=== PATIENT | male | born 1960 | race Caucasian/White ===

== ENCOUNTER 2024-07-02 21:28 | Emergency (ER) | payer MEDICARE ==
[~2024-07-02] VITALS: Ht 165.1 cm; Wt 63.5 kg
[2024-07-02 21:38] VITALS: TEMP 98.5
[2024-07-02] MEDS: BENZONATATE 100 MG CAP PO ONE (22:03)
[2024-07-02] MEDS: SODIUM CHLORIDE 0.9% 1000ML 1,000 ML IV ONE (22:16)
[2024-07-02 22:20] VITALS: PULSE 106; RESP 25
[2024-07-02 22:20] LABS: CORONAVIRUS COVID-19 AG NEGATIVE (NEGATIVE); INFLUENZA A AG NEGATIVE (NEGATIVE); INFLUENZA B AG NEGATIVE (NEGATIVE)
[2024-07-02] MEDS: ALBUTEROL/IPRATROPIUM 3 ML NEB NEB ONE (22:20)
[2024-07-03] MEDS ORDERED: BENZONATATE100 MG PO (00:51)
[2024-07-03] MEDS ORDERED: PREDNISONE50 MG PO (00:51)
[2024-07-03] MEDS ORDERED: VENTOLIN HFA18 GM INH (00:51)
[2024-07-03 00:52] VITALS: PULSE 93; RESP 14; O2SAT 97
== END 2024-07-03 01:00 | disposition home or self-care (01) ==
LOC: ER 21:46
DX: R06.02 Shortness of breath (principal); J44.1 Chronic obstructive pulmonary disease with (acute) exacerbation; F17.210 Nicotine dependence, cigarettes, uncomplicated
CPT/HCPCS: 71045; 87428; 93005; 99284; J7030